=== PATIENT | male | born 1990 | race Caucasian/White ===

== ENCOUNTER 2017-03-25 23:26 | Emergency (ER) | payer SELFPAY ==
[~2017-03-25] VITALS: Ht 180.3 cm; Wt 73.0 kg
[~2017-03-25 23:26] MED LIST: IBUP600T26 PO
[2017-03-25 23:28] VITALS: BP 132/83; PULSE 53; RESP 16; TEMP 99.4; O2SAT 100
--- NOTE | 2017-03-26 00:07 | PD ---
HPI Chief Complaint: Psychiatric Symptoms Time Seen by Provider: 00:01 Travel History International Travel<30 days: No Contact w/Intl Traveler<30days: No Traveled to known affect area: No History of Present Illness HPI 26-year-old white male presents to emergency department on a voluntary basis for psychological evaluation. He states that he is concerned that he'll commit suicide so he presents today for evaluation treatment. He had placed a sheet around his neck earlier and was going to hang himself. He states that he admitted living in a sober living facility for 6 months. He claims 6 months of sobriety. This past week he alleges he started snorting oxycodone, cocaine and heroin. He is concerned that he was going to be kicked out of his sober living facility and that he would be homeless. He states that he cannot live like this. He reports that he has had relationship problems with his girlfriend as well as problems with work which pushed him over the edge to start doing drugs again. He denies any toxic ingestions. He denies any alcohol today. History of alcohol abuse in the past.. He does smoke cigarettes. He denies any IV drugs. No homicidal ideation. No recent illness. [facility] Past Medical History Narrative Medical Polysubstance abuse ADHD: No Cancer: No Diabetes: No Diminished Hearing: No Psychiatric: No Migraines: No Thyroid Disease: No Ulcer: No Tetanus Vaccination: < 5 Years Past Surgical History Surgical History: No Previous Surgery Appendectomy: No Cholecystectomy: No Social History Alcohol Use: Yes (ABUSE) Tobacco Use: Yes Substance Use: Yes (COCAINE, OPIATES) Allergies-Medications (Allergen,Severity, Reaction): Coded Allergies: No Known Allergies (Verified , 03/25/17) Reported Meds & Prescriptions Reported Meds & Active Scripts Active No Active Prescriptions or Reported Medications Review of Systems Except as stated in HPI: all other systems reviewed are Neg Psychiatric: Positive: Depression, Suicidal Ideations, Mood Disorder, Substance Abuse, No: Anxiety, Disorder of Thought, Homicidal Ideation Physical Exam Narrative GENERAL: Well-nourished, well-developed patient. SKIN: Warm and dry. HEAD: Normocephalic and atraumatic. EYES: No scleral icterus. No injection or drainage. ENT: No nasal drainage noted. Mucous membranes pink. Airway patent. NECK: Supple, trachea midline. Moves head freely without obvious discomfort. CARDIOVASCULAR: Regular rate and rhythm without murmurs, gallops, or rubs. RESPIRATORY: Breath sounds equal bilaterally. No accessory muscle use. GASTROINTESTINAL: Abdomen soft, non-tender, nondistended. EXTREMITIES: No cyanosis or edema. BACK: Nontender without obvious deformity. No CVA tenderness. NEURO: Patient is alert and oriented. no sensorimotor deficits. Nonfocal. Normal speech. PSYCH: No delusions. No auditory or visual hallucinations. Data Data Last Documented VS Vital Signs Date Time Temp Pulse Resp B/P Pulse Ox O2 Delivery O2 Flow Rate FiO2 03/25/17 23:28 99.4 53 16 132/83 100 Room Air Orders Complete Blood Count With Diff (03/25/17 23:41) Comprehensive Metabolic Panel (03/25/17 23:41) Psych Screen (03/25/17 23:41) Drug Screen, Random Urine (03/25/17 23:41) Alcohol (Ethanol) (03/25/17 23:41) Salicylates (Aspirin) (03/25/17 23:41) Tylenol (Acetaminophen) (03/25/17 23:41) Labs Laboratory Tests Test 03/25/17 23:54 White Blood Count 8.1 TH/MM3 Red Blood Count 4.92 MIL/MM3 Hemoglobin 15.3 GM/DL Hematocrit 45.9 % Mean Corpuscular Volume 93.3 FL Mean Corpuscular Hemoglobin 31.1 PG Mean Corpuscular Hemoglobin 33.3 % Concent Red Cell Distribution Width 13.4 % Platelet Count 252 TH/MM3 Mean Platelet Volume 9.2 FL Neutrophils (%) (Auto) 59.6 % Lymphocytes (%) (Auto) 24.9 % Monocytes (%) (Auto) 7.9 % Eosinophils (%) (Auto) 7.1 % Basophils (%) (Auto) 0.5 % Neutrophils # (Auto) 4.8 TH/MM3 Lymphocytes # (Auto) 2.0 TH/MM3 Monocytes # (Auto) 0.6 TH/MM3 Eosinophils # (Auto) 0.6 TH/MM3 Basophils # (Auto) 0.0 TH/MM3 CBC Comment DIFF FINAL Differential Comment Sodium Level 141 MEQ/L Potassium Level 3.9 MEQ/L Chloride Level 107 MEQ/L Carbon Dioxide Level 27.3 MEQ/L Anion Gap 7 MEQ/L Blood Urea Nitrogen 12 MG/DL Creatinine 1.11 MG/DL Estimat Glomerular Filtration 79 ML/MIN Rate Random Glucose 102 MG/DL Calcium Level 9.3 MG/DL Total Bilirubin 0.2 MG/DL Aspartate Amino Transf 14 U/L (AST/SGOT) Alanine Aminotransferase 17 U/L (ALT/SGPT) Alkaline Phosphatase 79 U/L Total Protein 7.6 GM/DL Albumin 4.4 GM/DL Salicylates Level 3.7 MG/DL Urine Opiates Screen POS Acetaminophen Level LESS THAN 2.0 MCG/ML Urine Barbiturates Screen NEG Urine Amphetamines Screen NEG Urine Benzodiazepines Screen NEG Urine Cocaine Screen POS Urine Cannabinoids Screen POS Ethyl Alcohol Level LESS THAN 3 MG/DL MDM Medical Decision Making Medical Screen Exam Complete: Yes Emergency Medical Condition: Yes Medical Record Reviewed: Yes Interpretation(s) Laboratory Tests Test 03/25/17 23:54 White Blood Count 8.1 TH/MM3 Red Blood Count 4.92 MIL/MM3 Hemoglobin 15.3 GM/DL Hematocrit 45.9 % Mean Corpuscular Volume 93.3 FL Mean Corpuscular Hemoglobin 31.1 PG Mean Corpuscular Hemoglobin 33.3 % Concent Red Cell Distribution Width 13.4 % Platelet Count 252 TH/MM3 Mean Platelet Volume 9.2 FL Neutrophils (%) (Auto) 59.6 % Lymphocytes (%) (Auto) 24.9 % Monocytes (%) (Auto) 7.9 % Eosinophils (%) (Auto) 7.1 % Basophils (%) (Auto) 0.5 % Neutrophils # (Auto) 4.8 TH/MM3 Lymphocytes # (Auto) 2.0 TH/MM3 Monocytes # (Auto) 0.6 TH/MM3 Eosinophils # (Auto) 0.6 TH/MM3 Basophils # (Auto) 0.0 TH/MM3 CBC Comment DIFF FINAL Differential Comment Sodium Level 141 MEQ/L Potassium Level 3.9 MEQ/L Chloride Level 107 MEQ/L Carbon Dioxide Level 27.3 MEQ/L Anion Gap 7 MEQ/L Blood Urea Nitrogen 12 MG/DL Creatinine 1.11 MG/DL Estimat Glomerular Filtration 79 ML/MIN Rate Random Glucose 102 MG/DL Calcium Level 9.3 MG/DL Total Bilirubin 0.2 MG/DL Aspartate Amino Transf 14 U/L (AST/SGOT) Alanine Aminotransferase 17 U/L (ALT/SGPT) Alkaline Phosphatase 79 U/L Total Protein 7.6 GM/DL Albumin 4.4 GM/DL Salicylates Level 3.7 MG/DL Urine Opiates Screen POS Acetaminophen Level LESS THAN 2.0 MCG/ML Urine Barbiturates Screen NEG Urine Amphetamines Screen NEG Urine Benzodiazepines Screen NEG Urine Cocaine Screen POS Urine Cannabinoids Screen POS Ethyl Alcohol Level LESS THAN 3 MG/DL Differential Diagnosis MDM: High Differential diagnoses: Schizophrenia, schizoaffective disorder, bipolar, anxiety, depression, adjustment reaction, mood disorder NOS, ODD, depressive disorder NOS, dementia, dementia with agitation, psychosis NOS, substance induced mood disorder, intermittent explosive disorder, Asperger syndrome, infection,electrolyte abnormality, malingering. Narrative Course Mental health screening discussed with the patient. Psychiatric screen ordered. The patient's been medically cleared. This is polysubstance abuse, adjustment reaction with depressed mood and suicidal ideation Diagnosis Primary Impression: Polysubstance abuse Additional Impression: adjustment reaction with depressed mood and suicidal ideation Scripts No Active Prescriptions or Reported Meds Condition: Greg Reese March 26, 2017 00:07
[2017-03-26 00:23] LABS: AUTOMATED NEUTROPHIL # 4.8 TH/MM3 (1.8-7.7); BASOPHIL % 0.5 % (0.0-2.0); EOSINOPHIL # 0.6 TH/MM3 (0-0.4); EOSINOPHIL % 7.1 % (0.0-4.0); HEMATOCRIT 45.9 % (39.0-51.0); HEMO FLAGS DIFF FINAL; LYMPH % 24.9 % (9.0-44.0); MEAN CELL VOLUME 93.3 FL (80.0-100.0); MEAN CORPUSCULAR HEMOGLOBIN 31.1 PG (27.0-34.0); MEAN CORPUSCULAR HGB CONC 33.3 % (32.0-36.0); MONO % 7.9 % (0.0-8.0); NEUT % 59.6 % (16.0-70.0); PLATELET COUNT 252 TH/MM3 (150-450); RED BLOOD COUNT 4.92 MIL/MM3 (4.50-5.90); RED CELL DISTRIBUTION WIDTH 13.4 % (11.6-17.2); WHITE BLOOD COUNT 8.1 TH/MM3 (4.0-11.0)
[2017-03-26 00:29] LABS: ALT (GPT) 17 U/L (12-78); ANION GAP 7 MEQ/L (5-15); AST (GOT) 14 U/L (15-37); BICARBONATE 27.3 MEQ/L (21.0-32.0); BLOOD UREA NITROGEN 12 MG/DL (7-18); CHLORIDE 107 MEQ/L (98-107); GLOMERULAR FILTRATION RATE 79 ML/MIN (>89); POTASSIUM 3.9 MEQ/L (3.5-5.1); SODIUM (NA) 141 MEQ/L (136-145)
[2017-03-26 00:30] LABS: AMPHETAMINE, URINE NEG (NEG); BARBITURATES, URINE NEG (NEG); COCAINE, URINE POS (NEG)
[2017-03-26 00:31] LABS: ALKALINE PHOSPHATASE 79 U/L (45-117); TOTAL BILIRUBIN ADULT 0.2 MG/DL (0.2-1.0)
[2017-03-26 00:43] LABS: ACETAMINOPHEN LESS THAN 2.0 MCG/ML (10.0-30.0)
[2017-03-26 05:11] VITALS: BP 109/63; PULSE 59; RESP 16; O2SAT 96
--- NOTE | 2017-03-26 08:21 | PD.CONS ---
Provisional Diagnosis Admission Date 03/26/2017 [place] I. 1. Polysubstance Abuse 2. Malingering for retirement until he can produce a clean urine and return to his sober living [place] II. 1. Antisocial personality traits [place] V. GAF is 54 presently History of Present Illness Service Psychiatry Consult Requested By ED Reason for Consult Voluntary psychiatric evaluation. Primary Care Physician No Primary Care Physician HPI Mr. Gonzales is a 26 year-old male with a self-reported history of substance use disorder and a chart history of oppositional defiant disorder in childhood who presented to the emergency department voluntarily reporting suicidal ideation. Patient is a resident of [facility] and recently relapsed to substance use, jeopardizing his housing there with the attendant threat of homelessness. Reviewing the electronic medical record, I see that the patient was admitted in childhood under Dr. Hardy with a discharge diagnosis of oppositional defiant disorder. Patient seen and examined. Chart reviewed. Case discussed with RN in the J- pod and the delta pod. There has been no evidence of any suicidality or homicidality while the patient has been under observation in the emergency department. On my examination today, the patient presents as somewhat manipulative. Antisocial personality traits are present. He claims to feel somewhat dysphoric in relation to his recent relapse, but his affect is full and reactive and he smiles and appears generally more euthymic than his stated mood. He admits that following his relapse, a friend recommended "that I go stay somewhere" until he can provide a clean urine and return to sober living. He does not verbalize any suicidal or homicidal ideation, intent, or plan this morning and is more interested in ensuring that he has somewhere to stay until he can provide the clean sample. He agrees that if this need for retirement could be met, he would be agreeable to leaving the ED this morning but emphasizes that he does not wish to be on the streets. No depressive or hypomanic/manic symptoms described. Denies audiovisual hallucinations. No evident delusions. He is future oriented and hopeful to regain his sobriety and go back to sober living. The remainder of the psychiatric ROS is negative. Past psychiatric history: Patient reports his primary issue is substance use disorder. He is not currently under the care of a psychiatrist. He denies any history of psychiatric admissions. He denies any history of suicide attempts. Family history: Patient denies any family history of serious mental illness or suicide. He reports that substance use disorder afflicts several members of his father's side of the family. Chemical dependency history: Patient reports that he has been sober for the last 6 months and relapsed about a week ago to OxyContin, crack cocaine and a lesser quantity of alcohol. He says that this 6 month period of sobriety is his first significant period of sobriety since entering into substance use. Social history: Patient has been residing at [facility] the [facility] for 6 months. He is single with no children. He has a year and a half of college. He works for a [employer]. He denies any or active legal issues. He does endorse a history of possession charges. No violent crime. Denies any access to guns or firearms. He believes in God. Review of Systems Except as stated in HPI: all other systems reviewed are Neg Past Family Social History Coded Allergies: No Known Allergies (Verified , 03/25/17) Past Medical History Denies any PMH No Active Prescriptions or Reported Meds No home meds. Family History See above Social History See above Patient's Strengths (min. 2) Able to access clinical care. Verbally fluent. Physical Exam Physical examination completed by ED provider. On my examination today, the patient appears to be well-nourished and well-developed and attending to his basic needs. He is in no acute physical distress. No signs of substance intoxication or withdrawal noted. No motoric abnormalities noted. Laboratories and vital signs reviewed: Vital Signs Vital Signs Date Time Temp Pulse Resp B/P Pulse Ox O2 Delivery O2 Flow Rate FiO2 03/26/17 05:11 59 16 109/63 96 Room Air 03/25/17 23:28 99.4 Lab Results Item Value Date Time White Blood Count 8.1 TH/MM3 03/25/172353 Hemoglobin 15.3 GM/DL 03/25/172353 Platelet Count 252 TH/MM3 03/25/172353 Sodium Level 141 MEQ/L 03/25/172353 Potassium Level 3.9 MEQ/L 03/25/172353 Chloride Level 107 MEQ/L 03/25/172353 Carbon Dioxide Level 27.3 MEQ/L 03/25/172353 Blood Urea Nitrogen 12 MG/DL 03/25/172353 Creatinine 1.11 MG/DL 03/25/172353 Aspartate Amino Transf (AST/SGOT) 14 U/L L 03/25/172353 Alanine Aminotransferase (ALT/SGPT) 17 U/L 03/25/172353 Alkaline Phosphatase 79 U/L 03/25/172353 Urine Opiates Screen POS H 03/25/172353 Urine Cocaine Screen POS H 03/25/172353 Urine Cannabinoids Screen POS H 03/25/172353 Ethyl Alcohol Level LESS THAN 3 MG/DL 03/25/172353 Mental Status Examination Patient is in hospital gown. He is well groomed and attending to basic hygiene. He is awake and alert and oriented to person, Hospital and approximate date at least. No evidence of delirium. No motoric abnormalities noted. Speech is within normal limits for rate, tone and volume. Language and fund of knowledge seemed average. Mood is reportedly somewhat dysphoric and upset about his relapse but his affect is full and reactive and generally euthymic and inconsistent with stated mood. Thought process linear. No loosening of associations. No evident delusions. Denies audiovisual hallucinations. No suicidal or homicidal ideation, intent or plan at this time. Insight and judgment are fair. Assessment & Plan Problem List: (1) Polysubstance abuse ICD Code: F19.10 (2) Malingering ICD Code: Z76.5 Assessment & Plan This is a 26-year-old male with psychiatric history as detailed above who presents on a voluntary basis for psychiatric evaluation. On my examination this morning, the patient admits that he has come into the hospital in order to obtain retirement until he can provide a clean urine in order to go back to his sober living house following a recent relapse. He does not verbalize any suicidal or homicidal ideation this morning. He is somewhat manipulative and antisocial and has a childhood history of ODD. There is no evidence of any unstable mood, anxiety or psychotic disorder in this patient at this time. He appears to be attending to his basic needs. 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 He likewise would not benefit from admission to the general inpatient psychiatric unit, and it would in fact be counter-therapeutic to give in to his manipulations. He is agreeable to pursuing outpatient management so long as his need for retirement can be met, and so we will provide [facility] Supported patient in his desire to regain his sobriety. Patient to return to psychiatric emergency room for any concerning psychiatric symptoms. Case discussed with RN. Thank you very much for this consultation. Request HC Surrog/Guard Advoc?: No Jeffrey aNpier MD March 26, 2017 08:21
== END 2017-03-26 09:43 | disposition home or self-care (01) ==
LOC: NEPD 23:26
DX: F19.10 Other psychoactive substance abuse, uncomplicated (principal); F43.21 Adjustment disorder with depressed mood; R45.851 Suicidal ideations; F17.210 Nicotine dependence, cigarettes, uncomplicated; F14.10 Cocaine abuse, uncomplicated
CPT/HCPCS: 80053; 80307; 85025; 99284